=== PATIENT | female | born 1945 | race Hispanic/Latino ===

== ENCOUNTER 2018-12-19 01:52 | Inpatient (IN) | payer OTHER ==
[~2018-12-19] VITALS: Ht 162.6 cm; Wt 73.3 kg
[2018-12-19 02:24] LABS: BASOPHILS % (AUTO) 0.6 % (0.0-5.0); EOSINOPHILS % (AUTO) 4.8 % (0.0-8.0); HEMATOCRIT 38.3 % (36-48); LYMPHOCYTES % (AUTO) 33.9 % (21.0-51.0); MEAN CORPUSCULAR HGB CONC 34.2 g/dL (32.0-36.0); MEAN CORPUSCULAR VOLUME 87.8 fL (79-99); MONOCYTES % (AUTO) 7.9 % (3.0-13.0); NEUTROPHILS % (AUTO) 52.8 % (40.0-77.0); PLATELET COUNT (AUTO) 190 K/uL (130-400); RED BLOOD CELL COUNT(AUTO) 4.37 MIL/uL (4.00-5.50); RED CELL DISTRIBUTION WIDTH 14.8 % (11.0-15.5); WHITE BLOOD COUNT (AUTO) 8.7 K/uL (4.8-10.8)
[2018-12-19 02:25] LABS: APPEARANCE,URINE Clear (CLEAR); BILIRUBIN,URINE Negative (NEGATIVE); COLOR,URINE Yellow (YELLOW); GLUCOSE, URINE (UA) Negative (NEGATIVE); KETONES,URINE Negative (NEGATIVE); LEUKOCYTE ESTERASE ,URINE Trace (NEGATIVE); NITRATE,URINE Negative (NEGATIVE); OCCULT BLOOD,URINE Negative (NEGATIVE); PH,URINE 7.5 (5.0-8.0); PROTEIN,URINE Negative (NEGATIVE); UROBILINOGEN,URINE 0.2 mg/dL (0.2-1.0)
[2018-12-19 02:34] LABS: CREATININE 0.7 mg/dL (0.5-1.5); POTASSIUM 4.2 mmol/L (3.5-5.1)
[2018-12-19 02:36] LABS: INR 0.95 (0.85-1.15)
[2018-12-19 02:39] LABS: ALBUMIN 3.5 g/dL (3.5-5.0); BILIRUBIN,TOTAL 0.1 mg/dL (0.2-1.0); TOTAL PROTEIN, SERUM 7.4 g/dL (6.0-8.3)
[2018-12-19 02:43] LABS: BACTERIA,URINE Few /HPF (None Seen); RBC,URINE 0-1 /HPF (0-1); SQUAMOUS EPITHELIAL CELL,UR Moderate /HPF (0-2)
[2018-12-19] MEDS ORDERED: SODIUM CHLORIDE 0.9% 500ML 500 ML IV ONE ×2 (03:02→03:26)
[2018-12-19] MEDS ORDERED: LIDOCAINE 5% TOPICAL PATCH TP ONE (03:25)
[2018-12-19] MEDS ORDERED: ASPIRIN 325 MG TABLET ONE (03:25)
[2018-12-19] MEDS ORDERED: MORPHINE SULFATE 4 MG/1ML SYG IV PRN (04:00)
[2018-12-19] MEDS ORDERED: MORPHINE SULFATE 2 MG/ML 1ML SYG IV PRN (04:00)
[2018-12-19] MEDS: NITROGLYCERIN 1GM/1 INCH PACKET TD SCH ×2 (04:00→12:53)
[2018-12-19] MEDS ORDERED: ONDANSETRON HCL 4 MG/2 ML VIAL IV PRN (04:00)
[2018-12-19] MEDS ORDERED: ACETAMINOPHEN 325 MG TAB PO PRN ×2 (04:00)
[2018-12-19] MEDS ORDERED: MORPHINE SULFATE 2 MG/ML 1ML SYG ONE (04:11)
[2018-12-19] MEDS ORDERED: NITROGLYCERIN 1GM/1 INCH PACKET TD ONE (04:46)
[2018-12-19 05:45] VITALS: BP 144/62
[2018-12-19 07:00] VITALS: BP 143/57
[2018-12-19 07:16] LABS: CREATINE KINASE, TOTAL 106 U/L (21-232); MYOGLOBIN 36 ng/mL (10-92); TROPONIN I < 0.04 ng/mL (0.00-0.06)
[2018-12-19] MEDS ORDERED: METOPROLOL TARTRATE 25 MG TAB PO SCH (09:00)
[2018-12-19] MEDS ORDERED: ENOXAPARIN SODIUM 30 MG/0.3 ML SQ SCH (09:00)
[2018-12-19] MEDS ORDERED: ASPIRIN 325 MG TABLET PO SCH (09:00)
[2018-12-19] MEDS ORDERED: FAMOTIDINE/PF 20 MG/2 ML VIAL IV SCH (09:00)
[2018-12-19 11:00] VITALS: BP 142/60
--- NOTE | 2018-12-19 14:15 | NUR ---
DCP CM met with pt discussed dc plans. Pt independent prior to admission, lives at home w/spouse, pt is undocumented from [place], currently sitting family. Denies any equipments/services. Pt feels safe to go back home, neice able to assist with transportation, spouse able to assist with needs as necessary. Currently does not have a pcp, self pay, [facility] assisting, given community resources packet. DC plan to home once stable. CM to cont to follow up. Addendum: 12/19/18 at 1418 by MELODIE OLSEN LVN CM Amended: Links added.
[2018-12-19 15:12] LABS: CREATINE KINASE, TOTAL 99 U/L (21-232); MYOGLOBIN 30 ng/mL (10-92); TROPONIN I < 0.04 ng/mL (0.00-0.06)
[2018-12-19 16:00] VITALS: BP 127/51
[2018-12-19 19:00] VITALS: BP 158/64
--- NOTE | 2018-12-19 21:10 | NUR ---
MD DR SMART IN THE ROOM TO SEE PT.
[2018-12-19] MEDS ORDERED: AMLODIPINE BESYLATE 5 MG TAB PO SCH (21:15)
[2018-12-19] MEDS ORDERED: ATOR10 PO (21:22)
[2018-12-19] MEDS ORDERED: AMLO5TAB4 PO (21:22)
--- NOTE | 2018-12-19 22:20 | NUR ---
DISCHARGED Pt discharged to home,accompanied per niece in stable condition.Discharge instructions given to pt and niece,prescription for Norvasc and Lipitor given.Pt verbalized understanding.Iv dcd.cath tip intact.
== END 2018-12-19 22:50 | disposition home or self-care (01) | DRG 313 ==
LOC: EDH 01:52 → EDHIP 01:53 → 3DH 05:35
PROVIDERS: ADMIT Internal Medicine; ATTEND Internal Medicine
DX: R07.89 Other chest pain (principal); E11.9 Type 2 diabetes mellitus without complications; E78.2 Mixed hyperlipidemia; I10 Essential (primary) hypertension; Z90.49 Acquired absence of other specified parts of digestive tract
CPT/HCPCS: 36415; 70450; 71045; 80053; 81001; 82550; 82948; 83605; 83690; 83874; 83880; 84484; 85025; 85610; 85730; 93005; G0378; J1650; J3490; J7040